=== PATIENT | female | born 1960 | race Caucasian/White ===

== ENCOUNTER → 2019-03-12 | Outpatient (CLI) | payer OTHER ==
[~2019-03-12] MED LIST: AMIT10 PO; ASCO500; CLARITIN5 MG PO; COUGHTAB200 MG; IBUP400 PO; OMEG1CAP30; PROG100 PO; TOCO1000 PO; Vitamin D2000 UNIT; Vitamin K100 MCG
== END | disposition home or self-care (01) ==
LOC: PLD 14:45 → LAB SHORT 14:45
DX: D04.39 Carcinoma in situ of skin of other parts of face (principal)
CPT/HCPCS: 88305

== ENCOUNTER 2019-04-24 09:55 | Day surgery (SDC) | payer OTHER ==
[~2019-04-24] VITALS: Ht 167.6 cm; Wt 63.9 kg
== END 2019-04-24 14:09 | disposition home or self-care (01) ==
LOC: ORSCSDS 09:55
PROVIDERS: Orthopaedic Surgery
PROC: 0SBD4ZZ Excision of Left Knee Joint, Percutaneous Endoscopic Approach (ICD-10-PCS; principal; 2019-04-24 11:30)
DX: S83.242A Other tear of medial meniscus, current injury, left knee, initial encounter (principal); M67.52 Plica syndrome, left knee
CPT/HCPCS: J0171; J0690; J1885; J2250; J2405; J2704; J3010; J7120

== ENCOUNTER → 2020-06-29 | Outpatient (CLI) | payer OTHER | END | disposition home or self-care (01) | LOC: PLD 13:41 → LAB SHORT 13:41 | DX: L57.0 Actinic keratosis (principal); L73.9 Follicular disorder, unspecified; L81.9 Disorder of pigmentation, unspecified | CPT/HCPCS: 88305 ==